=== PATIENT | female | born 1935 | race Caucasian/White ===

== ENCOUNTER → 2017-11-04 | Outpatient (REF) | payer MEDICARE, BC, MEDICAID ==
[~2017-11-04] MED LIST: ASPI1TAB PO; BUSP10TA PO; COUM2.5T17 PO; FLUT11IN INH; MELO15TA4 PO; OMEG100011 PO; OSCA200T PO; PROP1TAB29 PO; SIMV20TA2 PO; TRAM50TA2 PO; TRAZ50TA11 PO; ZANTTAB PO; [UNRECOGNIZED DRUG - CODE] PO
[2017-11-04 11:27] LABS: MEAN CORPUSCULAR HEMOGLOBIN 30.9 pg (27.0-33.0); MEAN CORPUSCULAR HGB CONC 30.9 g/dl (32.0-36.5); PLATELET COUNT, AUTOMATED 245 10^3/uL (150-450); RED CELL DISTRIBUTION WIDTH 13.1 % (11.5-14.5)
[2017-11-04 11:47] LABS: ALBUMIN 3.6 GM/DL (3.2-5.2); ALBUMIN/GLOBULIN RATIO 0.97 (1.00-1.93); BILIRUBIN,TOTAL 0.4 MG/DL (0.2-1.0); CALCIUM LEVEL 8.8 MG/DL (8.8-10.2); CREATININE FOR GFR 0.96 MG/DL (0.55-1.02); GLOMERULAR FILTRATION RATE 59.4 (>32); POTASSIUM SERUM 4.2 MEQ/L (3.5-5.1); TOTAL PROTEIN 7.3 GM/DL (6.4-8.2)
== END ==
LOC: M SFHCPLAZ 08:45
PROVIDERS: ATTEND Internal Medicine
DX: J45.909 Unspecified asthma, uncomplicated (principal); I10 Essential (primary) hypertension; E78.00 Pure hypercholesterolemia, unspecified

== ENCOUNTER → 2018-05-15 | Outpatient (REF) | payer MEDICARE, BC, MEDICAID ==
[2018-05-15 12:06] LABS: ALBUMIN 3.6 GM/DL (3.2-5.2); ALBUMIN/GLOBULIN RATIO 1.06 (1.00-1.93); ALKALINE PHOSPHATASE 75 U/L (45-117); ALT/SGPT 20 U/L (12-78); ANION GAP 6 MEQ/L (8-16); AST/SGOT 19 U/L (7-37); BILIRUBIN,TOTAL 0.6 MG/DL (0.2-1.0); BLOOD UREA NITROGEN 16 MG/DL (7-18); CALCIUM LEVEL 8.6 MG/DL (8.8-10.2); CARBON DIOXIDE LEVEL 30 MEQ/L (21-32); CHLORIDE LEVEL 109 MEQ/L (98-107); CREATININE FOR GFR 0.93 MG/DL (0.55-1.30); GLOMERULAR FILTRATION RATE > 60.0 (>32); GLUCOSE, FASTING 91 MG/DL (70-100); SODIUM LEVEL 145 MEQ/L (136-145)
[2018-05-15 13:17] LABS: ESTIMATED AVERAGE GLUCOSE 111 MG/DL (60-110); HEMOGLOBIN A1c 5.5 %
== END ==
LOC: M SFHCPLAZ 11:33
DX: I10 Essential (primary) hypertension (principal); R73.01 Impaired fasting glucose
CPT/HCPCS: 80053

== ENCOUNTER → 2018-11-28 | Outpatient (REF) | payer MEDICARE, BC, MEDICAID ==
[~2018-11-28] MED LIST changes: +MELO15TA28 PO; -MELO15TA4 PO; -PROP1TAB29 PO; +PROP20TA72 PO; +TRAZ-160 PO; -TRAZ50TA11 PO
[2018-11-28 11:32] LABS: HEMATOCRIT 42.2 % (36.0-47.0); HEMOGLOBIN 13.4 g/dl (12.0-15.5); MEAN CORPUSCULAR HEMOGLOBIN 30.9 pg (27.0-33.0); MEAN CORPUSCULAR HGB CONC 31.8 g/dl (32.0-36.5); MEAN CORPUSCULAR VOLUME 97.2 fl (80.0-96.0); PLATELET COUNT, AUTOMATED 245 10^3/uL (150-450); RED BLOOD COUNT 4.34 10^6/uL (4.00-5.40); WHITE BLOOD COUNT 6.4 10^3/uL (4.0-10.0)
[2018-11-28 12:13] LABS: ALBUMIN 3.9 GM/DL (3.2-5.2); ALT/SGPT 14 U/L (12-78); BILIRUBIN,TOTAL 0.6 MG/DL (0.2-1.0); BLOOD UREA NITROGEN 13 MG/DL (7-18); CALCIUM LEVEL 8.9 MG/DL (8.8-10.2); CARBON DIOXIDE LEVEL 28 MEQ/L (21-32); CHLORIDE LEVEL 105 MEQ/L (98-107); CHOLESTEROL LEVEL 200 MG/DL (<200); CHOLESTEROL RISK RATIO 2.941 (<5); CREATININE FOR GFR 0.83 MG/DL (0.55-1.30); GLOMERULAR FILTRATION RATE > 60.0 (>32); GLUCOSE, FASTING 89 MG/DL (70-100); HDL CHOLESTEROL 68 MG/DL (>40); LDL CHOLESTEROL 115 MG/DL (<100); NON-HDL-C 132 MG/DL; POTASSIUM SERUM 4.3 MEQ/L (3.5-5.1); SODIUM LEVEL 140 MEQ/L (136-145); THYROID STIMULATING HORMONE 0.782 uIU/ML (0.358-3.740); TOTAL PROTEIN 6.8 GM/DL (6.4-8.2); TRIGLYCERIDES LEVEL 84 MG/DL (<150)
[2018-11-28 14:13] LABS: TOTAL 25(OH) VITAMIN D 36.7 NG/ML (30.0-100.0)
== END ==
LOC: M SFHCPLAZ 07:09
PROVIDERS: ATTEND Internal Medicine
DX: J45.909 Unspecified asthma, uncomplicated (principal); I10 Essential (primary) hypertension; E78.00 Pure hypercholesterolemia, unspecified; F41.9 Anxiety disorder, unspecified; M81.0 Age-related osteoporosis without current pathological fracture

== ENCOUNTER → 2018-12-21 | Outpatient (CLI) | payer MEDICARE, BC, MEDICAID ==
[~2018-12-21] MED LIST changes: +APAP325T4 PO; +ASPI81TA85 PO; +MELA10CA PO; +VASC1CAP2 PO
[2018-12-21 14:23] LABS: HEMATOCRIT 42.7 % (36.0-47.0); HEMOGLOBIN 13.7 g/dl (12.0-15.5); MEAN CORPUSCULAR HEMOGLOBIN 31.4 pg (27.0-33.0); MEAN CORPUSCULAR HGB CONC 32.1 g/dl (32.0-36.5); MEAN CORPUSCULAR VOLUME 97.9 fl (80.0-96.0); PLATELET COUNT, AUTOMATED 310 10^3/uL (150-450); RED BLOOD COUNT 4.36 10^6/uL (4.00-5.40); WHITE BLOOD COUNT 5.5 10^3/uL (4.0-10.0)
[2018-12-21 14:34] LABS: INR 0.93; PROTHROMBIN TIME 12.6 SECONDS (12.1-14.4)
[2018-12-21 14:47] LABS: ALBUMIN 3.8 GM/DL (3.2-5.2); ALT/SGPT 12 U/L (12-78); BILIRUBIN,TOTAL 0.3 MG/DL (0.2-1.0); BLOOD UREA NITROGEN 12 MG/DL (7-18); CALCIUM LEVEL 8.9 MG/DL (8.8-10.2); CARBON DIOXIDE LEVEL 28 MEQ/L (21-32); CHLORIDE LEVEL 104 MEQ/L (98-107); CREATININE FOR GFR 0.94 MG/DL (0.55-1.30); GLOMERULAR FILTRATION RATE > 60.0 (>32); GLUCOSE, FASTING 138 MG/DL (70-100); SODIUM LEVEL 139 MEQ/L (136-145); TOTAL PROTEIN 6.9 GM/DL (6.4-8.2)
--- NOTE | 2018-12-21 14:52 | REP ---
Chest two views HISTORY: Preop Comparison: 06/01/2016 The lungs are clear. The heart is normal in size. The pulmonary vasculature is normal in appearance. The bony structure is intact. IMPRESSION: No acute disease. Electronically Signed by Kyaw Lara MD 12/21/2018 02:43 P
[2018-12-21 15:07] LABS: ERYTHROCYTE SEDIMENTATION RATE 7 mm/hr (0-30)
--- NOTE | 2018-12-22 08:40 | ECGEPIP ---
Stationary ECG Study [facility] Test Date: 2018-12-21 Pat Name: BRIDGETTE BENITO Department: Room: - Gender: F [employer] Milling Machine Tender: CHELITA : 1935 Requested By: Wolfgang Reynolds Order Number: [id number] Reading MD: Kaylin Ordonez Measurements Intervals Haigler Rate: 79 P: 57 MT: 164 QRS: 9 QRSD: 89 T: 57 QT: 372 QTc: 428 Interpretive Statements SINUS RHYTHM MINIMAL CHANGE SINCE 06/01/16 Electronically Signed On 12-22-2018 8:39:53 EST by Kaylin Ordonez
== END ==
LOC: M LAB 13:36
PROVIDERS: ATTEND Orthopaedic Surgery
DX: Z01.818 Encounter for other preprocedural examination (principal); M13.861 Other specified arthritis, right knee

== ENCOUNTER 2019-01-09 09:03 | Inpatient (IN) | payer MEDICARE, BC, MEDICAID ==
--- NOTE | 2018-12-27 15:11 | HPE ---
DATE OF ADMISSION: 01/09/2019 CHIEF COMPLAINT: Right knee pain. HISTORY OF PRESENT ILLNESS: Catherine is a pleasant 83-year-old female with progressively worsening right knee pain and stiffness. She has failed to improve with conservative treatment. She has elected for surgery for her continued symptoms. She has pain with weightbearing activities and her activities of daily living. X-rays of her knee are notable for advanced osteoarthritis of the right knee joint. She has consented for a right total knee arthroplasty by Dr. Rodolfo Aguirre. Medical optimization was performed by Dr. Bryan. ALLERGIES: No known allergies. CURRENT MEDICATIONS: - baby aspirin once a day - calcium with D - omega-3 with fish oil - daily multivitamin - buspirone 18 mg - propranolol 20 mg - meloxicam 15 mg - melatonin at night - calcium with D at night - omega-3 fish oil at night - Zocor 20 mg at night - Pepcid 20 mg at night - Flovent two puffs in the morning only - ProAir HFA micro inhaler two puffs every four hours as needed PAST MEDICAL HISTORY: 1. Hypertension. 2. Hyperlipidemia. 3. Insomnia. 4. Anxiety. PAST SURGICAL HISTORY: Includes a left total knee arthroplasty. SOCIAL HISTORY: Karly is retired and she does not smoke and only occasionally drinks alcohol. FAMILY HISTORY: Noncontributory. REVIEW OF SYSTEMS: This patient denies chest pain, heart palpitations, cough, wheezing, difficulty breathing and shortness of breath. She denies abdominal pain, nausea, vomiting, diarrhea or constipation. She denies recent upper respiratory infection or urinary tract infection symptoms. She does complain of persistent pain in the right knee and pain with weightbearing activities in the right knee. PHYSICAL EXAMINATION: VITAL SIGNS: She is 5 feet, 1/2 inches tall, weighs 127.2 pounds with a temperature of 97.5, blood pressure 150/90, respirations of 22, pulse of 64. GENERAL: She is well-nourished, well-developed, in no acute distress, alert female patient. She walks with a moderate limp favoring her right lower extremity. She uses a single-leg cane. NECK: Supple without adenopathy or jugular venous distension. LUNGS: Clear to auscultation without rales or wheeze throughout. HEART: Regular rate and rhythm. ABDOMEN: Bowel sounds were present. EXTREMITIES: Examination of the knee revealed intact skin. She had decreased range of motion secondary to pain and stiffness. The limb was neurovascularly intact. LABORATORY DATA: EKG showed sinus rhythm at 79 beats per minute. Chest x-ray showed no acute cardiopulmonary disease processes. Prothrombin time was 12.6, INR 0.93, glucose 138, BUN 12, creatinine 0.94, sodium 139, potassium 4.0. CBC showed an MCV of 97.9, otherwise within normal limits with a sedimentation rate of 7. IMPRESSION: Symptomatic osteoarthritis of the right knee. PLAN: Consented for a right total knee arthroplasty by Dr. Rodolfo Aguirre.
[2019-01-09] VITALS (7 sets, daily range): BP systolic 146–152; BP diastolic 86–94
[~2019-01-09] VITALS: Ht 162.6 cm; Wt 57.6 kg
[~2019-01-09 09:03] MED LIST changes: +ACETAMINOPHEN 500 MG TAB PO ONE; +LR 1,000 ML IV ONE
[2019-01-09] MEDS ORDERED: TRANEXAMIC ACID 100 MG/ML 10ML VIAL As Ordered ONE (10:47)
[2019-01-09] MEDS ORDERED: BUPIVACAINE HCL 0.25% 10 ML VIAL As Ordered ONE (10:48)
[2019-01-09] MEDS ORDERED: MIDAZOLAM INJ 2 MG/2 ML VIAL (J2250) As Ordered ONE ×2 (10:48→11:02)
[2019-01-09] MEDS ORDERED: EPINEPHrine INJ 1 MG/ML 1ML AMP As Ordered ONE (10:48)
[2019-01-09] MEDS ORDERED: BUPIVACAINE LIPOSOME/PF 1.3% 20ML VIAL (13.3MG/ML)(EXPAREL)(C9290 PER1MG) As Ordered ONE (10:48)
[2019-01-09] MEDS ORDERED: ceFAZolin 1GM INJ (J0690 PER 500MG) As Ordered ONE (10:48)
[2019-01-09] MEDS ORDERED: fentaNYL 100 MCG/2 ML INJECTION (J3010) As Ordered ONE ×2 (10:48→11:01)
[2019-01-09] MEDS ORDERED: MIDAZOLAM INJ 2 MG/2 ML VIAL (J2250) IV ONE (11:00)
[2019-01-09] MEDS ORDERED: PROPOFOL 200 MG/20 ML VIAL As Ordered ONE (11:01)
[2019-01-09] MEDS ORDERED: BUPIVACAINE HCL 0.5% 30 ML VIAL As Ordered ONE (11:08)
[2019-01-09] MEDS ORDERED: PHENYLephrine HCL 500 MCG/5 ML (100MCG/ML) SYRINGE (J2370) As Ordered ONE (12:50)
[2019-01-09] MEDS ORDERED: ACETAMINOPHEN TAB 650MG DOSE (2X325MG) PO PRN (14:30)
[2019-01-09] MEDS ORDERED: LR 1,000 ML IV SCH (14:30)
[2019-01-09] MEDS ORDERED: FLEET ENEMA PR PRN (14:30)
[2019-01-09] MEDS ORDERED: fentaNYL 100 MCG/2 ML INJECTION (J3010) IV PRN (14:30)
[2019-01-09] MEDS ORDERED: HYDROmorphone HCL 1 MG/ML SYRINGE (J1170) IV PRN ×2 (14:30)
[2019-01-09] MEDS ORDERED: ONDANSETRON 4MG/2ML VIAL (J2405) IV PRN (14:30)
--- NOTE | 2019-01-09 14:38 | REP ---
AP AND LATERAL RIGHT KNEE, TWO VIEWS: HISTORY: Postoperative. COMPARISON: 08/31/2016. The patient is status post right total knee replacement. There is no acute fracture or dislocation. Subcutaneous air and surgical sebastián are present in the overlying soft tissue. IMPRESSION: The patient is status post right total knee replacement. There is anatomic alignment. Electronically Signed by Kyaw Lara MD 01/09/2019 02:41 P
[2019-01-09] MEDS ORDERED: ROPIvacaine 0.5% 30 ML INJECTION (J2795 PER 1MG) ONE (14:41)
[2019-01-09] MEDS ORDERED: dexameTHASONE 10 MG/1 ML VIAL PRES.FREE (J1100) ONE (14:41)
--- NOTE | 2019-01-09 15:19 | RO ---
DATE OF PROCEDURE: 01/09/2019 PREOPERATIVE DIAGNOSIS: Right knee degenerative arthritis. POSTOPERATIVE DIAGNOSES: Right knee degenerative arthritis with right knee extensive hemarthrosis and hemosiderin-stained synovium with a marginal osteophyte fracture from the medial tibial condyle. PROCEDURE: Right total knee arthroplasty using a size 4 cruciate retaining femoral component and size 5 tibial tray with a 6 mm rotating platform polyethylene insert and a 35 mm polyethylene button. All the components were cemented. The prosthesis was made by [employer]. It was an Attune knee. SURGEON: Dr. Wolfgang Aguirre ADULT REMEDIAL EDUCATION INSTRUCTOR: Jaquelin Marie ANESTHESIA: Spinal with right femoral nerve block. COMPLICATIONS: None. ESTIMATED BLOOD LOSS: 20 mL. SPECIMENS: The joint surface. DESCRIPTION OF PROCEDURE: Antibiotics were given intravenously preoperatively, then a successful right femoral nerve block and then a spinal anesthetic was induced. A tourniquet placed right upper thigh and not inflated. Then, the right lower extremity was then carefully prepped and draped in the usual sterile fashion and then elevated, and after appropriate time-out, the tourniquet was inflated. A longitudinal incision was made for a medial parapatellar approach to the knee. Bovie cautery was used to coagulate crossing vessels. A medial parapatellar arthrotomy was performed revealing a hemarthrosis. It was noted that the synovium throughout the knee was hemosiderin stained. In addition, there was a marginal fracture of an osteophyte off the medial tibial condyle, likely causing the bleeding. Subperiosteal dissection around the proximal, medial, and lateral tibial plateaus performed. The fractured osteophyte was removed with a rongeur. The patella was everted, and it was noted to be severely evernated. The patella was everted and the knee flexed, and the drill placed down the center of the femoral canal. The distal femoral cutting jig was then applied and set with the jig set at a 5 degree valgus cut at 9 mm resection level for a right knee. The distal femoral cut performed. AP sizing jig measured for a size 4, and 3 degrees of external rotation was dialed in and the pins were placed and the 4-in-1 block applied. Anterior and posterior chamfer cuts performed. We then used the notch guide to perform a notchplasty on the femur, and then we exposed the proximal tibia, used the extramedullary alignment jig to estimate being parallel to the mechanical axis referencing off the medial tibial condyle at 4 mm resection level. Because of the fracture and somewhat of a divot in the medial side, I did end up taking an additional 4 mm, but once the jig was placed, secondary check with the extramedullary guide confirmed we appeared to the parallel to the mechanical axis. The proximal tibial osteotomy was then performed. Spacer blocks fit very symmetrically and with good stability to varus and valgus stress testing, ultimately with the 6 mm spacer. Laminar laminating machine tender was then placed medially, and we performed a completion of lateral meniscectomy debriding the posterolateral osteophytes. We then placed the laminary laminating machine tender laterally and performed a completion medial meniscectomy debriding the posterior medial osteophytes. At this point is when we actually did the spacer block testing, and then we sized the proximal tibia initially for a 4, but there was some rocking, and this is when we went back and took an additional 2 mm, then an additional total of 4 mm of the tibia to make the tibia flush, flat, and to make sure that we did not have excessive amount of deformity in the medial tibial condyle. When we were done, clearly, we had enough coverage of the defect where the medial marginal osteophyte fracture was located. We then sized for the #5 tray. It was pinned into position following the reamer and leslie. Trial was placed. Trial femoral component placed, and then we brought the knee into extension, everted the patella, performed a patellar ostotomy, sized for a 35 button. Lug holes were drilled, the trial placed, and patellofemoral tracking was anatomic. She had excellent range of motion, good stability with a size 6 spacer at this point. We then drilled the lug holes for the femur, removed all the trial components, placed Exparel in the subperiosteal tissues around the distal femur and the proximal tibia, and then Miss Jaquelin Marie mixed the cement on the back table as I prepared the bony surfaces for cementing with a copious amount of pulsatile lavage irrigant solution. Miss Jaquelin Marie was also critical to the success of this difficult operation by helping with appropriate soft tissue retraction, helped with closing the wound, helped to mix the cement, helped to prepare the patient otherwise, and help to provide appropriate soft tissue retraction and manipulation of the knee so I could perform the operation smoothly and efficiently. We then cemented the tibial tray, removed excess cement, placed the polyethylene, cemented the femoral component, removed excess cement, brought the knee into extension, and then cemented the patellar button and removed cement excess cement, held it with a clamp until the cement hardened with the knee in full extension. We copiously irrigated out the knee joint as we were awaiting for the cement to harden, and then placed tranexamic acid into the knee and then closed the apex of the arthrotomy with two #1 PDS sutures, the medial parapatellar area was closed with #1 PDS suture, then a double-arm #1 STRATAFIX running was used to close the capsule. Tourniquet was released. At this point we copiously irrigated again, closed the deep subdermal tissues with interrupted #2-0 PDS suture. Skin was closed with sebastián, covered by an Optifoam dry sterile bulky dressing. She was then transferred to the recovery room in stable condition. There were no intraoperative complications.
[2019-01-09] MEDS ORDERED: HYDROMORPHONE HCL 0.5 MG/ 0.5 ML SYRINGE (J1170 PER 1) IV PRN (15:33)
[2019-01-09] MEDS: LR 1,000 ML IV SCH (15:47)
[2019-01-09] MEDS: HYDROMORPHONE HCL 0.5 MG/ 0.5 ML SYRINGE (J1170 PER 1) IV PRN (21:13)
[2019-01-10 02:00] VITALS: BP 162/93
[2019-01-10] MEDS: LR 1,000 ML IV SCH (02:34)
[2019-01-10] MEDS: HYDROMORPHONE HCL 0.5 MG/ 0.5 ML SYRINGE (J1170 PER 1) IV PRN (03:52)
[2019-01-10 06:00] VITALS: BP 136/72
[2019-01-10] MEDS ORDERED: PERCOCET 5MG/325MG TAB PO PRN ×2 (06:30)
[2019-01-10] MEDS ORDERED: ONDANSETRON 4 MG TAB (S0181) PO PRN (06:30)
[2019-01-10 06:39] LABS: HEMATOCRIT 34.8 % (36.0-47.0); MEAN CORPUSCULAR HEMOGLOBIN 31.5 pg (27.0-33.0); MEAN CORPUSCULAR HGB CONC 31.6 g/dl (32.0-36.5); MEAN CORPUSCULAR VOLUME 99.7 fl (80.0-96.0); PLATELET COUNT, AUTOMATED 246 10^3/uL (150-450); RED BLOOD COUNT 3.49 10^6/uL (4.00-5.40); WHITE BLOOD COUNT 11.3 10^3/uL (4.0-10.0)
[2019-01-10 07:14] LABS: BLOOD UREA NITROGEN 14 MG/DL (7-18); CALCIUM LEVEL 8.2 MG/DL (8.8-10.2); CARBON DIOXIDE LEVEL 28 MEQ/L (21-32); CHLORIDE LEVEL 107 MEQ/L (98-107); CREATININE FOR GFR 0.73 MG/DL (0.55-1.30); GLOMERULAR FILTRATION RATE > 60.0 (>32); GLUCOSE, FASTING 106 MG/DL (70-100); POTASSIUM SERUM 3.9 MEQ/L (3.5-5.1); SODIUM LEVEL 140 MEQ/L (136-145)
[2019-01-10] MEDS ORDERED: FLUTICASONE HFA 110 MCG 12 GM INHALER (FLOVENT) INH PRN (07:15)
[2019-01-10] MEDS ORDERED: PERC5TAB12 PO (07:29)
[2019-01-10] MEDS ORDERED: XARE10TA PO (07:29)
[2019-01-10] MEDS ORDERED: busPIRone 10 MG TAB PO SCH (09:00)
[2019-01-10] MEDS ORDERED: MIRALAX *UNIT DOSE* 17GM PACKET PO SCH (09:00)
[2019-01-10] MEDS ORDERED: MOM 30ML SUSPENSION UDC PO SCH (09:00)
--- NOTE | 2019-01-10 16:25 | IPN ---
DATE: 01/10/2019 SUBJECTIVE: The patient tells me that she is feeling quite well. She has some pain in her knee but otherwise there are no specific complaints. OBJECTIVE VITAL SIGNS: Temperature 97.5, pulse 78, respiratory rate 16, blood pressure 136/72, oxygen saturation 96% on room air. GENERAL: She is a very pleasant, elderly, female sitting up in bed. She does not appear to be in any acute distress. HEENT: Cranial nerves II-XII are grossly intact. She has moist mucous membranes. No elevation in central venous pressure. CARDIOVASCULAR: S1, S2. RESPIRATORY EXAM: Clear. ABDOMINAL EXAM: Benign. EXTREMITIES: Her dressing is clean, dry and intact. LABORATORY STUDIES: WBC 11.3, hemoglobin 11.0, platelet count 246. Chemistry panel: Sodium 140, potassium 3.9, chloride 107, bicarbonate 28, BUN 14, creatinine 0.7. ASSESSMENT AND PLAN: This is an 83-year-old female postoperative day #1 for elective right total knee. 1. Right total knee. Management as per orthopedic surgery. 2. Anxiety. The patient is continued on her home buspirone. 3. Reactive airway disease. She is continued on Flovent. 4. Dyslipidemia. She is continued on Simvastatin. DISPOSITION: As per orthopedic surgery. Thank you for this interesting consultation. We will continue to follow along with you. Please call with any specific questions.
[2019-01-10] MEDS ORDERED: RIVAROXABAN 10 MG TAB (XARELTO) PO SCH (18:00)
[2019-01-10] MEDS ORDERED: SIMVASTATIN 10 MG TAB PO SCH (21:00)
--- NOTE | 2019-01-11 12:15 | DSES ---
DATE OF ADMISSION: 01/09/2019 DATE OF DISCHARGE: 01/10/2019 DISCHARGE DIAGNOSIS: Right knee arthritis status post right total knee arthroplasty. HISTORY: This an 83-year-old female with progressively worsening right knee pain and stiffness. She had failed to improve with conservative treatment. She elected for surgery for her continued symptoms. PROCEDURE PERFORMED: Right total knee arthroplasty. HOSPITAL COURSE: The patient was admitted on the day of surgery and underwent right total knee arthroplasty that was without complications. The patient's hospital course was without complications. Her pain was controlled and she was up with physical therapy per the protocol. Upon discharge, she was weightbearing as tolerated to her right lower extremity on her walker. She is going to resume her preoperative medications and diet. She is going to use oral medications for pain control. She will use Xarelto and KARLENE stockings for 30 days postoperatively for deep vein thrombosis (DVT) prophylaxis. Additionally, she will follow in the office in 2 weeks for wound check and staple removal.
== END 2019-01-10 11:00 | disposition other institution (70) | DRG 470 ==
LOC: M OR 09:03 → M MS5PR 15:25
PROVIDERS: ADMIT Orthopaedic Surgery; ATTEND Orthopaedic Surgery
PROC: 0SRC0J9 Replacement of Right Knee Joint with Synthetic Substitute, Cemented, Open Approach (ICD-10-PCS; principal; 2019-01-09 12:30)
DX: M17.11 Unilateral primary osteoarthritis, right knee (principal); I10 Essential (primary) hypertension; E78.5 Hyperlipidemia, unspecified; G47.00 Insomnia, unspecified; R26.89 Other abnormalities of gait and mobility; F41.9 Anxiety disorder, unspecified; Z96.652 Presence of left artificial knee joint; Z79.82 Long term (current) use of aspirin; Z79.899 Other long term (current) drug therapy

== ENCOUNTER → 2019-06-04 | Outpatient (REF) | payer MEDICARE, BC, MEDICAID ==
[~2019-06-04] MED LIST changes: -ACETAMINOPHEN 500 MG TAB PO ONE; -ASPI1TAB PO; +ASPI81TA26 PO; -LR 1,000 ML IV ONE; +PERC5TAB12 PO; -TRAZ-160 PO; +TRAZ-252 PO; +XARE10TA PO; +ZANT150T40 PO; -ZANTTAB PO
[2019-06-04 09:46] LABS: HEMATOCRIT 36.2 % (36.0-47.0); HEMOGLOBIN 11.1 g/dl (12.0-15.5); MEAN CORPUSCULAR HEMOGLOBIN 28.7 pg (27.0-33.0); MEAN CORPUSCULAR HGB CONC 30.7 g/dl (32.0-36.5); MEAN CORPUSCULAR VOLUME 93.5 fl (80.0-96.0); PLATELET COUNT, AUTOMATED 283 10^3/uL (150-450); RED BLOOD COUNT 3.87 10^6/uL (4.00-5.40); WHITE BLOOD COUNT 4.4 10^3/uL (4.0-10.0)
[2019-06-04 09:53] LABS: ALBUMIN 3.8 GM/DL (3.2-5.2); ALT/SGPT 15 U/L (12-78); BILIRUBIN,TOTAL 0.5 MG/DL (0.2-1.0); BLOOD UREA NITROGEN 11 MG/DL (7-18); CALCIUM LEVEL 8.9 MG/DL (8.8-10.2); CARBON DIOXIDE LEVEL 29 MEQ/L (21-32); CHLORIDE LEVEL 108 MEQ/L (98-107); CHOLESTEROL LEVEL 214 MG/DL (<200); CHOLESTEROL RISK RATIO 2.301 (<5); CREATININE FOR GFR 0.93 MG/DL (0.55-1.30); GLOMERULAR FILTRATION RATE > 60.0 (>32); GLUCOSE, FASTING 100 MG/DL (70-100); HDL CHOLESTEROL 93 MG/DL (>40); LDL CHOLESTEROL 106 MG/DL (<100); MAGNESIUM LEVEL 2.5 MG/DL (1.8-2.4); NON-HDL-C 121 MG/DL; POTASSIUM SERUM 4.4 MEQ/L (3.5-5.1); SODIUM LEVEL 141 MEQ/L (136-145); TOTAL PROTEIN 7.2 GM/DL (6.4-8.2); TRIGLYCERIDES LEVEL 75 MG/DL (<150)
== END ==
LOC: M SFHCPLAZ 07:54
PROVIDERS: ATTEND Internal Medicine
DX: J45.909 Unspecified asthma, uncomplicated (principal); I10 Essential (primary) hypertension; E78.00 Pure hypercholesterolemia, unspecified

== ENCOUNTER → 2020-06-26 | Outpatient (REF) | payer MEDICARE, BC, MEDICAID ==
[~2020-06-26] MED LIST changes: -ASPI81TA85 PO; +ASPI81TA86 PO; -SIMV20TA2 PO; +SIMV20TA22 PO
[2020-08-25 12:03] LABS: BASO % 0.6 % (0.0-1.0); EOS # 0.1 10^3/uL (0.0-0.5); EOS % 2.7 % (0.0-3.0); HEMATOCRIT 38.9 % (36.0-47.0); HEMOGLOBIN 11.8 g/dl (12.0-15.5); LYMPH # 1.9 10^3/uL (1.5-5.0); LYMPH % 36.4 % (24.0-44.0); MEAN CORPUSCULAR HGB CONC 30.3 g/dl (32.0-36.5); MEAN CORPUSCULAR VOLUME 92.4 fl (80.0-96.0); MONO # 0.5 10^3/uL (0.0-0.8); MONO % 8.8 % (0.0-5.0); NEUTROPHILS # 2.6 10^3/uL (1.5-8.5); NEUTROPHILS % 51.1 % (36.0-66.0); PLATELET COUNT, AUTOMATED 266 10^3/uL (150-450); RED BLOOD COUNT 4.21 10^6/uL (4.00-5.40); WHITE BLOOD COUNT 5.1 10^3/uL (4.0-10.0)
[2020-09-01 10:07] LABS: CREATININE FOR GFR 1.07 MG/DL (0.55-1.30); POTASSIUM SERUM 4.6 MEQ/L (3.5-5.1)
[2020-09-01 10:08] LABS: ALBUMIN 3.8 GM/DL (3.2-5.2); BILIRUBIN,TOTAL 0.3 MG/DL (0.2-1.0); CHOLESTEROL RISK RATIO 2.826 (<5); THYROID STIMULATING HORMONE 0.671 uIU/ML (0.358-3.740); TOTAL PROTEIN 7.3 GM/DL (6.4-8.2)
[2020-09-01 10:11] LABS: TOTAL 25(OH) VITAMIN D 28.1 NG/ML (30.0-100.0)
== END ==
LOC: M SFHCPLAZ 11:49
PROVIDERS: ATTEND Internal Medicine
DX: E78.00 Pure hypercholesterolemia, unspecified (principal); I10 Essential (primary) hypertension; F41.9 Anxiety disorder, unspecified; R73.01 Impaired fasting glucose; M81.0 Age-related osteoporosis without current pathological fracture

== ENCOUNTER → 2021-01-18 | Outpatient (REF) | payer MEDICARE, BC, MEDICAID ==
[2021-01-18 07:29] LABS: BLOOD UREA NITROGEN 21 MG/DL (7-18); CALCIUM LEVEL 8.8 MG/DL (8.8-10.2); CARBON DIOXIDE LEVEL 31 MEQ/L (21-32); CHLORIDE LEVEL 109 MEQ/L (98-107); CREATININE FOR GFR 1.07 MG/DL (0.55-1.30); GLUCOSE, FASTING 84 MG/DL (70-100); POTASSIUM SERUM 4.6 MEQ/L (3.5-5.1); SODIUM LEVEL 141 MEQ/L (136-145)
[2021-01-18 07:30] LABS: ALT/SGPT 14 U/L (12-78); BILIRUBIN,TOTAL 0.2 MG/DL (0.2-1.0); CHOLESTEROL LEVEL 228 MG/DL (<200); CHOLESTEROL RISK RATIO 2.561 (<5); HDL CHOLESTEROL 89 MG/DL (>40); LDL CHOLESTEROL 123 MG/DL (<100); MAGNESIUM LEVEL 2.4 MG/DL (1.8-2.4); NON-HDL-C 139 MG/DL; TOTAL PROTEIN 7.5 GM/DL (6.4-8.2); TRIGLYCERIDES LEVEL 82 MG/DL (<150)
[2021-01-18 10:07] LABS: HEMOGLOBIN A1c 5.5 %
[2021-01-19 09:53] LABS: TOTAL 25(OH) VITAMIN D 28.3 NG/ML (30.0-100.0); VITAMIN B12 LEVEL 322 PG/ML
[2021-01-19 09:54] LABS: FOLATE 12.7 NG/ML
== END ==
LOC: M LAB REF 07:01
PROVIDERS: ATTEND Internal Medicine
DX: R73.01 Impaired fasting glucose (principal); I10 Essential (primary) hypertension; E78.00 Pure hypercholesterolemia, unspecified; M81.0 Age-related osteoporosis without current pathological fracture; F41.9 Anxiety disorder, unspecified; Z11.59 Encounter for screening for other viral diseases
CPT/HCPCS: 80053; 80061; 82306; 82607; 82746; 83036; 83735; 84443; G0472

== ENCOUNTER 2021-06-11 03:45 | Emergency (ER) | payer MEDICARE, BC, MEDICAID ==
[~2021-06-11] VITALS: Ht 162.6 cm; Wt 74.3 kg
[2021-06-11] MEDS ORDERED: TRAZ-252 PO (04:06)
[2021-06-11] MEDS ORDERED: QUET1TAB17 PO (04:06)
[2021-06-11] MEDS ORDERED: BOOSTRIX/ADACEL VACCINE (DIPHTH/PERTUSS/ACELL/TETANUS) 0.5ML SYR IM ONE (06:25)
[2021-06-11 08:33] LABS: CALCIUM LEVEL 8.4 MG/DL (8.8-10.2); CREATININE FOR GFR 0.98 MG/DL (0.55-1.30); GLOMERULAR FILTRATION RATE 57.4 (>32); POTASSIUM SERUM 4.1 MEQ/L (3.5-5.1)
[2021-06-11 08:34] LABS: BASO % 0.4 % (0.0-1.0); EOS # 0.2 10^3/uL (0.0-0.5); EOS % 3.6 % (0.0-3.0); HEMATOCRIT 38.5 % (36.0-47.0); HEMOGLOBIN 11.8 g/dl (12.0-15.5); LYMPH # 1.9 10^3/uL (1.5-5.0); LYMPH % 41.6 % (24.0-44.0); MEAN CORPUSCULAR HEMOGLOBIN 28.7 pg (27.0-33.0); MEAN CORPUSCULAR HGB CONC 30.6 g/dl (32.0-36.5); MEAN CORPUSCULAR VOLUME 93.7 fl (80.0-96.0); MONO # 0.5 10^3/uL (0.0-0.8); MONO % 10.4 % (2.0-8.0); NEUTROPHILS % 43.6 % (36.0-66.0); PLATELET COUNT, AUTOMATED 270 10^3/uL (150-450); RED BLOOD COUNT 4.11 10^6/uL (4.00-5.40); WHITE BLOOD COUNT 4.5 10^3/uL (4.0-10.0)
[2021-06-11 08:40] LABS: RSV AMPLIFICATION NEGATIVE (NEGATIVE)
[2021-06-11 08:44] VITALS: BP 190/89
== END 2021-06-11 09:08 | disposition short-term general hospital (02) ==
LOC: M ED 03:45
DX: S00.81XA Abrasion of other part of head, initial encounter (principal); S02.91XA Unspecified fracture of skull, initial encounter for closed fracture; W18.39XA Other fall on same level, initial encounter; Y92.018 Other place in single-family (private) house as the place of occurrence of the external cause; I10 Essential (primary) hypertension; J45.909 Unspecified asthma, uncomplicated; F03.90 Unspecified dementia, unspecified severity, without behavioral disturbance, psychotic disturbance, mood disturbance, and anxiety; F33.9 Major depressive disorder, recurrent, unspecified; F41.9 Anxiety disorder, unspecified; E78.5 Hyperlipidemia, unspecified; G25.0 Essential tremor; Z79.899 Other long term (current) drug therapy

== ENCOUNTER 2021-06-15 15:58 | Inpatient (IN) | payer MEDICARE, MEDICAID ==
[~2021-06-15] VITALS: Ht 167.6 cm; Wt 71.9 kg
[~2021-06-15 15:58] MED LIST changes: +QUET1TAB17 PO
[2021-06-16 14:00] VITALS: BP 141/73
[2021-06-16] MEDS ORDERED: MAALOX 30 ML SUSP *UDC PO PRN (14:20)
[2021-06-16] MEDS ORDERED: MOM 30ML SUSPENSION UDC PO PRN (14:20)
--- NOTE | 2021-06-16 15:46 | HPEPDOC ---
[facility] Medical History & Physical Date of Admission Jun 16, 2021 Date of Service: Jun 16, 2021 Primary Care Physician: Jhonny Bryan Attending Physician: JURGEN ONEAL DO History and Physical CHIEF COMPLAINT: C7 transverse fracture HISTORY OF PRESENT ILLNESS: Patient is an 86-year-old female who is a direct transfer from [facility]. Patient initially presented to [facility] emergency department on June 11, 2021 after a ground-level fall. CT scan of the head and neck showed a C7 transverse fracture. Due to the need for possible surgical intervention, patient was transferred to [facility] for further evaluation. Patient was evaluated by neurosurgery who did not deem the patient a candidate for surgical intervention. Patient was then transferred [facility] to [facility] for further care with instructions to wear a cervical collar. Patient states that she has occasional pain in the back of her neck but is otherwise feeling well today. PAST MEDICAL HISTORY: 1. Essential hypertension. 2. Impaired fasting glucose. 3. Hypercholesterolemia. 4. Age-related osteoporosis 5. Essential tremor 6. Anxiety 7. Asthma PAST SURGICAL HISTORY: 1. Tonsillectomy as a child. 2. Bilateral cataract removals. 3. Bilateral knee replacements. SOCIAL HISTORY: Patient is a non-smoker and currently lives at the [facility] in [place], [place]. Patient does not smoke cigarettes, used to drink heavily but no longer does. Patient does not use IV drugs. FAMILY HISTORY: In review of the patient's medical record it appears that the patient's father of heart disease at age 60, mother of natural causes 82. Patient has a sister of lung cancer at 62 and another sister at 79 after a fall ALLERGIES: Please see below. REVIEW OF SYSTEMS: General: Patient denies fevers HEENT: Patient reports mild headaches where she has a bruise Cardiovascular: Patient denies chest pain Respiratory: Patient denies shortness of breath, cough GI: Patient denies abdominal pain, nausea, vomiting, diarrhea : Patient denies increased frequency or pain with urination Extremities: Patient denies swelling or pain in extremities Neurological: Patient denies numbness or tingling in legs Skin: Patient denies any new rashes or lesions. Hematologic: Patient denies any easy bruising. Lymphatic: Patient denies any lumps lumps or bumps in neck, axilla, or groin HOME MEDICATIONS: Please see below. PHYSICAL EXAMINATION: VITAL SIGNS: Temperature 97, pulse 64, respiratory rate 16, blood pressure 141/73, pulse oximetry 96% on room air. General: Alert and oriented female patient with cervical collar in place who was sitting up in bed when I walked in the room. Patient did not appear to be in any acute distress. HEENT: Normocephalic, patient had a bruise with a scab over is over her left forehead with some bruising around the left eye with no conjunctival injection, moist mucous membrane Neck: No lymphadenopathy or thyromegaly Cardiac: Regular rate and rhythm, no murmurs, normal S1, normal S2 Pulm: Clear to auscultation bilaterally. No wheezes, rhonchi, rales Abd: Nondistended, nontender to palpation, normal bowel sounds Ext: No edema bilateral lower extremities Neuro: Patient was able to move all 4 extremities on command. Patient reported equal sensation to light touch. LABORATORY DATA: See below. IMAGING: MICROBIOLOGY: Please see below. ASSESSMENT: Patient is AN 86-year-old female who presents to the floor directly from [facility] after care for C7 cervical fracture. . PLAN: 1. C7 transverse cervical fracture. Patient had a fall from ground-level on 06/11/[address] scan showed fracture. Patient was initially transferred to [facility] for possible surgical intervention but this was not necessary. Patient was transferred back. ARU screen has been placed. Pain control with Tylenol. Physical and occupational therapy has been ordered. 2. Falls. PT and OT have been ordered. ARU screen has been placed. 3. Hypertension. We will continue to monitor the patient's blood pressures. 4. Delirium on top of dementia. Patient was having issues with delirium at [facility]. Zyprexa was given at [facility] which did help the patient. Patient appeared to have her days and nights mixed up according to the documentation that I was reading. Pain control can be given with 2.5 mg of oxycodone if necessary as this was what was recommended by the geriatric consultation at [facility]. 5. Hyperlipidemia. Continue patient's home medications. 6. Anxiety. Continue patient's home medications. 7. Osteoporosis. Continue patient's home medications. 8. DVT prophylaxis Heparin 9. CODE STATUS: Full code Disposition: Patient be admitted to the medical surgical floor for further management of her cervical fracture as well as for acute rehabilitation screen. Patient will either go to ARU or be discharged back to the [facility] in [place]. Vital Signs Vital Signs Date Time Temp Pulse Resp B/P (MAP) Pulse Ox O2 Delivery O2 Flow Rate FiO2 06/16/21 14:00 97.0 64 16 141/73 (95) 96 Room Air Home Medications Scheduled Buspirone HCl (Buspirone HCl) 10 Mg Tab, 10 MG PO BID Calcium/Vitamin D (Oscal 500/200 D-3 500-200 mg-Unit) 1 Tab Tab, 1 TAB PO DAILY Icosapent Ethyl (Vascepa) 1 Gm Cap, 1 GM PO BID Quetiapine Fumarate (Quetiapine Fumarate) 25 Mg Tablet, 25 MG PO BID Simvastatin (Simvastatin) 20 Mg Tab, 10 MG PO DAILY Trazodone HCl (Trazodone HCl) 50 Mg Tablet, 50 MG PO QPM Scheduled PRN Acetaminophen (Acetaminophen) 325 Mg Tab, 650 MG PO Q4-6HP PRN for PAIN Fluticasone Propionate (Flovent Hfa) 110 Mcg/Act Aer, 2 MCG INH DAILYPRN PRN for SHORTNESS OF BREATH Melatonin (Melatonin) 10 Mg Cap, 10 MG PO QPMP PRN for SLEEP Allergies Coded Allergies: No Known Allergies (Unverified , 12/27/18) A-FIB/CHADSVASC A-FIB History Current/History of A-Fib/PAF?: No JURGEN ONEAL DO Jun 16, 2021 15:46
[2021-06-16 16:28] LABS: HEMOGLOBIN 12.2 g/dl (12.0-15.5); MEAN CORPUSCULAR HEMOGLOBIN 28.6 pg (27.0-33.0); MEAN CORPUSCULAR HGB CONC 30.5 g/dl (32.0-36.5); MEAN CORPUSCULAR VOLUME 93.9 fl (80.0-96.0); PLATELET COUNT, AUTOMATED 251 10^3/uL (150-450); RED BLOOD COUNT 4.26 10^6/uL (4.00-5.40); WHITE BLOOD COUNT 5.2 10^3/uL (4.0-10.0)
[2021-06-16 16:39] LABS: CALCIUM LEVEL 8.8 MG/DL (8.8-10.2); CREATININE FOR GFR 1.01 MG/DL (0.55-1.30); GLOMERULAR FILTRATION RATE 55.5 (>32); MAGNESIUM LEVEL 2.4 MG/DL (1.8-2.4); POTASSIUM SERUM 4.9 MEQ/L (3.5-5.1)
[2021-06-16] MEDS ORDERED: PROT1TAB2 PO (17:20)
[2021-06-16] MEDS ORDERED: PERCTAB2 PO (17:20)
[2021-06-16] MEDS ORDERED: QUET1TAB17 PO (17:20)
[2021-06-16] MEDS ORDERED: ZYPR2.5T2 PO (17:20)
[2021-06-16] MEDS ORDERED: LOVE1INJ SC (17:20)
[2021-06-16] MEDS ORDERED: SIMV10TA21 PO (17:20)
[2021-06-16] MEDS ORDERED: CALC1TAB19 PO (17:20)
[2021-06-16] MEDS ORDERED: MELA3TAB10 PO (17:20)
[2021-06-16] MEDS ORDERED: D31000TA2 PO (17:20)
[2021-06-16] MEDS ORDERED: QC A650T3 PO (17:20)
[2021-06-16] MEDS ORDERED: ASPI-161 PO (17:20)
[2021-06-16] MEDS ORDERED: HOME MED LIST COMPLETE! XX SCH (17:25)
[2021-06-16] MEDS ORDERED: OLANZapine INTRAMUSCULAR 10MG VIAL IM ONE (20:55)
[2021-06-17] MEDS: ACETAMINOPHEN TAB 650MG DOSE (2X325MG) PO PRN (00:52)
[2021-06-17 01:45] VITALS: BP 115/71
[2021-06-17 06:30] VITALS: BP 124/86
[2021-06-17 06:51] LABS: HEMOGLOBIN 12.8 g/dl (12.0-15.5); MEAN CORPUSCULAR HEMOGLOBIN 28.1 pg (27.0-33.0); MEAN CORPUSCULAR HGB CONC 30.5 g/dl (32.0-36.5); MEAN CORPUSCULAR VOLUME 92.1 fl (80.0-96.0); PLATELET COUNT, AUTOMATED 301 10^3/uL (150-450); RED BLOOD COUNT 4.56 10^6/uL (4.00-5.40); WHITE BLOOD COUNT 6.2 10^3/uL (4.0-10.0)
[2021-06-17 07:22] LABS: CALCIUM LEVEL 9.4 MG/DL (8.8-10.2); CREATININE FOR GFR 1.1 MG/DL (0.55-1.30); GLOMERULAR FILTRATION RATE 50.3 (>32); MAGNESIUM LEVEL 2.3 MG/DL (1.8-2.4); POTASSIUM SERUM 4.4 MEQ/L (3.5-5.1)
[2021-06-17] MEDS: ENOXAPARIN 30MG/0.3ML SYRINGE (J1650 PER 10MG) SC SCH (08:35)
[2021-06-17] MEDS ORDERED: OLANZapine INTRAMUSCULAR 10MG VIAL IM PRN (09:15)
[2021-06-17] MEDS: busPIRone 10 MG TAB PO SCH ×2 (10:37→20:57)
[2021-06-17] MEDS: PANTOPRAZOLE 40MG TAB (PROTONIX) PO SCH (10:37)
[2021-06-17] MEDS: ASPIRIN 81MG ENTERIC TABLET PO SCH (10:37)
[2021-06-17] MEDS: QUEtiapine FUMARATE 25 MG TAB PO SCH (10:38)
[2021-06-17] MEDS: VITAMIN D 1,000 INTERNATIONAL UNITS TABLET PO SCH (10:38)
[2021-06-17] MEDS: FLUTICASONE HFA 110 MCG 12 GM INHALER (FLOVENT) INH SCH ×2 (11:41→20:00)
[2021-06-17] MEDS ORDERED: HALOPERIDOL 5MG/ML VIAL (J1630 PER 1) IM STA ×2 (13:41→14:41)
[2021-06-17 14:00] VITALS: BP 119/85
--- NOTE | 2021-06-17 14:29 | IPNPDOC ---
Text Note Date of Service The patient was seen on 06/17/21. NOTE Subjective: Patient is an 86-year-old female with past history of hypertension, hypercholesterolemia, and dementia who was transferred yesterday from [facility]. Patient initially had a C7 transverse fracture and was transferred due to possible need for surgical intervention. No surgery was performed the patient was transferred back to [facility]. Patient has been agitated with increased delirium on top of her underlying dementia throughout the day today. Patient has been trying to leave and has been violent with staff. This has been so bad to the point where the patient has been medicated with haloperidol in order to protect the staff. Patient is otherwise doing well and medically does not have any acute issues at this time. Review of systems: General: Patient denies fevers HEENT: Patient denies headaches Cardiovascular: Patient denies chest pain Respiratory: Patient denies shortness of breath, cough GI: Patient denies abdominal pain, nausea, vomiting, diarrhea : Patient denies increased frequency or pain with urination Extremities: Patient denies swelling or pain in extremities Neurological: Patient denies numbness or tingling in legs Physical exam: Vitals: See below General: Alert but not oriented female who was sitting in the bedside chair when I walked into the room. Patient had cervical collar in place and did not appear to be in any acute distress. HEENT: Normocephalic, atraumatic, moist mucous membranes. Neck: No lymphadenopathy or thyromegaly Cardiac: Regular rate and rhythm, no murmurs, normal S1, normal S2 Pulm: Clear to auscultation bilaterally. No wheezes, rhonchi, rales Abd: Nondistended, nontender to palpation, normal bowel sounds Ext: No edema bilateral lower extremities Labs: See below Imaging: No new imaging has been performed Assessment/plan: 86-year-old female who presented to the floor directly from [facility] after care for a C7 cervical fracture 1. C7 transverse cervical fracture. Patient will does not qualify for ARU. Patient will work with physical and Occupational Therapy. We will continue to monitor. Patient pain has been controlled. 2. Falls. PT and OT have been ordered. 3. Hypertension. Continue outpatient blood pressure. 4. Delirium on underlying dementia. Patient was having issues with delirium at [facility]. Patient was seen by the geriatric service who recommended Zyprexa. Patient was very agitated earlier today requiring 2 mg of IM Haldol to be given to the patient in order to calm her down and protect the staff as she was attempting to headbutt, bite, and pull staff members hair. We will continue to monitor the patient. Patient was restarted on her Seroquel. 5. Hyperlipidemia. Continue patient's on medications. 6. Anxiety. Continue patient's home medications. 7. Osteoporosis continue patient's medications. DVT Prophylaxis: Heparin Disposition: Pending placement in locked dementia unit. VS,Nate, I+O VS, Joaobone, I+O Laboratory Tests 06/16/21 16:08 06/17/21 06:12 Vital Signs Date Time Temp Pulse Resp B/P (MAP) Pulse Ox O2 Delivery O2 Flow Rate FiO2 06/17/21 11:42 16 16 06/17/21 01:45 98.2 115/71 (86) 96 Room Air I&O- Last 24 Hours up to 6 AM 06/17/21 06:00 Intake Total 420 ml Output Total 0 ml Balance 420 ml JURGEN OENAL DO Jun 17, 2021 14:29
[2021-06-17] MEDS ORDERED: OLANZapine INTRAMUSCULAR 10MG VIAL IM ONE ×2 (18:50→19:00)
[2021-06-17] MEDS: SIMVASTATIN 10 MG TAB PO SCH (20:57)
[2021-06-17] MEDS: traZODone 50 MG TAB PO SCH (20:57)
[2021-06-17] MEDS: QUEtiapine FUMARATE 50MG TAB PO SCH (20:57)
[2021-06-17] MEDS ORDERED: QUEtiapine FUMARATE 25 MG TAB PO SCH (21:00)
[2021-06-18] MEDS: FLUTICASONE HFA 110 MCG 12 GM INHALER (FLOVENT) INH SCH ×2 (07:32→19:58)
[2021-06-18] MEDS: VITAMIN D 1,000 INTERNATIONAL UNITS TABLET PO SCH (08:18)
[2021-06-18] MEDS: ASPIRIN 81MG ENTERIC TABLET PO SCH (08:19)
[2021-06-18] MEDS: busPIRone 10 MG TAB PO SCH ×2 (08:19→22:07)
[2021-06-18] MEDS: QUEtiapine FUMARATE 25 MG TAB PO SCH (08:19)
[2021-06-18] MEDS: ENOXAPARIN 30MG/0.3ML SYRINGE (J1650 PER 10MG) SC SCH (08:19)
[2021-06-18] MEDS: PANTOPRAZOLE 40MG TAB (PROTONIX) PO SCH (08:19)
[2021-06-18] MEDS: OLANZapine 2.5MG TABLET PO PRN (08:21)
[2021-06-18] MEDS: ACETAMINOPHEN TAB 650MG DOSE (2X325MG) PO PRN (08:30)
[2021-06-18 10:40] LABS: CALCIUM LEVEL 8.8 MG/DL (8.8-10.2); CREATININE FOR GFR 1.07 MG/DL (0.55-1.30); GLOMERULAR FILTRATION RATE 51.9 (>32); MAGNESIUM LEVEL 2.3 MG/DL (1.8-2.4); POTASSIUM SERUM 4.2 MEQ/L (3.5-5.1)
[2021-06-18 11:18] LABS: HEMATOCRIT 37.3 % (36.0-47.0); HEMOGLOBIN 11.5 g/dl (12.0-15.5); MEAN CORPUSCULAR HEMOGLOBIN 28.8 pg (27.0-33.0); MEAN CORPUSCULAR VOLUME 93.3 fl (80.0-96.0); PLATELET COUNT, AUTOMATED 222 10^3/uL (150-450); WHITE BLOOD COUNT 5.6 10^3/uL (4.0-10.0)
[2021-06-18 11:19] LABS: MEAN CORPUSCULAR HGB CONC 30.8 g/dl (32.0-36.5)
[2021-06-18 13:55] VITALS: BP 134/74
--- NOTE | 2021-06-18 15:14 | IPNPDOC ---
Text Note Date of Service The patient was seen on 06/18/21. NOTE Subjective: Patient is an 86-year-old female past history of hypertension, hyp ercholesterolemia, and dementia was transferred to [facility] from [facility] 2 days ago. Had C7 transverse fracture. Patient was having difficult to control behaviors yesterday but is doing better today. As needed medications have been added. Patient is otherwise doing well. Physical exam: Vitals: See below General: Alert but not oriented female who was sleeping when I walked in the room. Patient had cervical collar in place and did not appear to be in any acute distress. HEENT: Normocephalic, atraumatic, moist mucous membranes. Neck: No lymphadenopathy or thyromegaly Cardiac: Regular rate and rhythm, no murmurs, normal S1, normal S2 Pulm: Clear to auscultation bilaterally. No wheezes, rhonchi, rales Abd: Nondistended, nontender to palpation, normal bowel sounds Ext: No edema bilateral lower extremities Labs: See below Imaging: No new imaging has been performed Assessment/plan: 86-year-old female presented to the floor directly from [facility] after care for C7 cervical fracture 1. C7 transverse cervical fracture. Patient does not qualify for ARU. Patient has not been working well with physical and occupational therapy due to her behaviors. Patient is able to walk around the unit without any difficulty however, she is a flight risk. Patient will need locked unit. 2. Falls. PT and OT have been ordered. 3. Hypertension. Continue outpatient blood pressure medication. 4. Delirium on underlying dementia. Patient was having issues with delirium at [facility] as well as at home prior to her fall. Patient has been restarted on her home medications with as needed Zyprexa. Patient will need a locked unit for placement. 5. Hyperlipidemia. Continue patient's medications. 6. Anxiety. Continue patient's on medications. 7. Osteoporosis. Continue patient's home medications. DVT Prophylaxis: Lovenox although the patient has been refusing this Disposition: Pending placement in a locked dementia unit. Patient will be made ALC status today. VS,Fishbone, I+O VS, Fishbone, I+O Laboratory Tests 06/18/21 09:56 Vital Signs Date Time Temp Pulse Resp B/P (MAP) Pulse Ox O2 Delivery O2 Flow Rate FiO2 06/18/21 13:55 97.5 80 18 134/74 (94) Room Air 06/17/21 06:30 93 I&O- Last 24 Hours up to 6 AM 06/18/21 05:59 Intake Total 1550 ml Balance 1550 ml JURGEN ONEAL DO Jun 18, 2021 15:14
[2021-06-18 22:00] VITALS: BP 141/75
[2021-06-18] MEDS: SIMVASTATIN 10 MG TAB PO SCH (22:07)
[2021-06-18] MEDS: QUEtiapine FUMARATE 50MG TAB PO SCH (22:07)
[2021-06-18] MEDS: traZODone 50 MG TAB PO SCH (22:07)
[2021-06-19 05:47] LABS: HEMATOCRIT 37.2 % (36.0-47.0); HEMOGLOBIN 11.5 g/dl (12.0-15.5); MEAN CORPUSCULAR HEMOGLOBIN 28.9 pg (27.0-33.0); MEAN CORPUSCULAR HGB CONC 30.9 g/dl (32.0-36.5); MEAN CORPUSCULAR VOLUME 93.5 fl (80.0-96.0); PLATELET COUNT, AUTOMATED 221 10^3/uL (150-450); RED BLOOD COUNT 3.98 10^6/uL (4.00-5.40); WHITE BLOOD COUNT 4.8 10^3/uL (4.0-10.0)
[2021-06-19 06:00] VITALS: BP 140/77
[2021-06-19 06:04] LABS: BLOOD UREA NITROGEN 28 MG/DL (7-18); CALCIUM LEVEL 8.1 MG/DL (8.8-10.2); CARBON DIOXIDE LEVEL 27 MEQ/L (21-32); CHLORIDE LEVEL 111 MEQ/L (98-107); CREATININE FOR GFR 0.94 MG/DL (0.55-1.30); GLOMERULAR FILTRATION RATE > 60.0 (>32); GLUCOSE, FASTING 91 MG/DL (70-100); MAGNESIUM LEVEL 2.4 MG/DL (1.8-2.4); POTASSIUM SERUM 4.3 MEQ/L (3.5-5.1); SODIUM LEVEL 143 MEQ/L (136-145)
[2021-06-19] MEDS: FLUTICASONE HFA 110 MCG 12 GM INHALER (FLOVENT) INH SCH ×2 (07:26→20:13)
[2021-06-19] MEDS: busPIRone 10 MG TAB PO SCH ×2 (08:46→20:16)
[2021-06-19] MEDS: QUEtiapine FUMARATE 25 MG TAB PO SCH (08:46)
[2021-06-19] MEDS: ASPIRIN 81MG ENTERIC TABLET PO SCH (08:46)
[2021-06-19] MEDS: PANTOPRAZOLE 40MG TAB (PROTONIX) PO SCH (08:46)
[2021-06-19] MEDS: VITAMIN D 1,000 INTERNATIONAL UNITS TABLET PO SCH (08:46)
[2021-06-19] MEDS: OLANZapine 2.5MG TABLET PO PRN (08:46)
[2021-06-19] MEDS: ENOXAPARIN 30MG/0.3ML SYRINGE (J1650 PER 10MG) SC SCH (08:49)
[2021-06-19] MEDS: DOCUSATE SODIUM 100MG CAPSULE PO SCH ×2 (10:00→20:16)
[2021-06-19 14:00] VITALS: BP 154/95
[2021-06-19 15:54] LABS: RSV AMPLIFICATION NEGATIVE (NEGATIVE)
[2021-06-19] MEDS: SIMVASTATIN 10 MG TAB PO SCH (20:16)
[2021-06-19] MEDS: traZODone 50 MG TAB PO SCH (20:16)
[2021-06-19] MEDS: QUEtiapine FUMARATE 50MG TAB PO SCH (20:16)
[2021-06-19] MEDS: ACETAMINOPHEN TAB 650MG DOSE (2X325MG) PO PRN (20:17)
[2021-06-19] MEDS: RAMELTEON 8 MG TAB (ROZEREM) PO PRN (23:20)
[2021-06-20] MEDS: ACETAMINOPHEN TAB 650MG DOSE (2X325MG) PO PRN ×2 (01:58→14:11)
[2021-06-20] MEDS: OLANZapine 2.5MG TABLET PO PRN ×2 (01:58→14:11)
[2021-06-20 08:00] VITALS: BP 154/95
[2021-06-20] MEDS: FLUTICASONE HFA 110 MCG 12 GM INHALER (FLOVENT) INH SCH ×2 (08:08→20:09)
[2021-06-20 08:19] LABS: HEMATOCRIT 40.5 % (36.0-47.0); HEMOGLOBIN 12.2 g/dl (12.0-15.5); MEAN CORPUSCULAR HEMOGLOBIN 28.8 pg (27.0-33.0); MEAN CORPUSCULAR HGB CONC 30.1 g/dl (32.0-36.5); MEAN CORPUSCULAR VOLUME 95.5 fl (80.0-96.0); PLATELET COUNT, AUTOMATED 250 10^3/uL (150-450); RED BLOOD COUNT 4.24 10^6/uL (4.00-5.40); WHITE BLOOD COUNT 6.1 10^3/uL (4.0-10.0)
[2021-06-20] MEDS: PANTOPRAZOLE 40MG TAB (PROTONIX) PO SCH (08:34)
[2021-06-20] MEDS: QUEtiapine FUMARATE 25 MG TAB PO SCH (08:34)
[2021-06-20] MEDS: busPIRone 10 MG TAB PO SCH ×2 (08:34→20:43)
[2021-06-20] MEDS: VITAMIN D 1,000 INTERNATIONAL UNITS TABLET PO SCH (08:34)
[2021-06-20] MEDS: ASPIRIN 81MG ENTERIC TABLET PO SCH (08:34)
[2021-06-20] MEDS: ENOXAPARIN 30MG/0.3ML SYRINGE (J1650 PER 10MG) SC SCH (08:34)
[2021-06-20] MEDS: DOCUSATE SODIUM 100MG CAPSULE PO SCH ×2 (08:34→20:43)
[2021-06-20 08:44] LABS: CALCIUM LEVEL 8.9 MG/DL (8.8-10.2); CREATININE FOR GFR 1.18 MG/DL (0.55-1.30); GLOMERULAR FILTRATION RATE 46.3 (>32); MAGNESIUM LEVEL 2.4 MG/DL (1.8-2.4); POTASSIUM SERUM 4.4 MEQ/L (3.5-5.1)
[2021-06-20] MEDS: RAMELTEON 8 MG TAB (ROZEREM) PO PRN (20:42)
[2021-06-20] MEDS: traZODone 50 MG TAB PO SCH (20:43)
[2021-06-20] MEDS: SIMVASTATIN 10 MG TAB PO SCH (20:43)
[2021-06-20] MEDS: QUEtiapine FUMARATE 50MG TAB PO SCH (20:43)
[2021-06-21] MEDS: OLANZapine 2.5MG TABLET PO PRN ×2 (01:57→08:44)
[2021-06-21] MEDS: ACETAMINOPHEN TAB 650MG DOSE (2X325MG) PO PRN (03:01)
[2021-06-21 06:00] VITALS: BP 134/79
[2021-06-21 06:53] LABS: HEMATOCRIT 38.2 % (36.0-47.0); HEMOGLOBIN 11.6 g/dl (12.0-15.5); MEAN CORPUSCULAR HEMOGLOBIN 28.8 pg (27.0-33.0); MEAN CORPUSCULAR HGB CONC 30.4 g/dl (32.0-36.5); MEAN CORPUSCULAR VOLUME 94.8 fl (80.0-96.0); PLATELET COUNT, AUTOMATED 248 10^3/uL (150-450); RED BLOOD COUNT 4.03 10^6/uL (4.00-5.40); WHITE BLOOD COUNT 6.3 10^3/uL (4.0-10.0)
[2021-06-21 07:09] LABS: CALCIUM LEVEL 8.9 MG/DL (8.8-10.2); CREATININE FOR GFR 1.11 MG/DL (0.55-1.30); GLOMERULAR FILTRATION RATE 49.7 (>32); MAGNESIUM LEVEL 2.4 MG/DL (1.8-2.4); POTASSIUM SERUM 4.4 MEQ/L (3.5-5.1)
[2021-06-21] MEDS: FLUTICASONE HFA 110 MCG 12 GM INHALER (FLOVENT) INH SCH ×2 (07:27→19:59)
[2021-06-21] MEDS: QUEtiapine FUMARATE 25 MG TAB PO SCH (08:43)
[2021-06-21] MEDS: busPIRone 10 MG TAB PO SCH ×2 (08:43→20:37)
[2021-06-21] MEDS: PANTOPRAZOLE 40MG TAB (PROTONIX) PO SCH (08:44)
[2021-06-21] MEDS: DOCUSATE SODIUM 100MG CAPSULE PO SCH ×2 (08:44→20:37)
[2021-06-21] MEDS: ASPIRIN 81MG ENTERIC TABLET PO SCH (08:44)
[2021-06-21] MEDS: VITAMIN D 1,000 INTERNATIONAL UNITS TABLET PO SCH (08:44)
[2021-06-21] MEDS: ENOXAPARIN 30MG/0.3ML SYRINGE (J1650 PER 10MG) SC SCH (08:53)
[2021-06-21] MEDS: QUEtiapine FUMARATE 50MG TAB PO SCH (20:37)
[2021-06-21] MEDS: traZODone 50 MG TAB PO SCH (20:37)
[2021-06-21] MEDS: SIMVASTATIN 10 MG TAB PO SCH (20:37)
[2021-06-22 06:00] VITALS: BP 152/70
[2021-06-22] MEDS: OLANZapine 2.5MG TABLET PO PRN (06:58)
[2021-06-22 07:12] LABS: HEMATOCRIT 38.8 % (36.0-47.0); HEMOGLOBIN 11.7 g/dl (12.0-15.5); MEAN CORPUSCULAR HEMOGLOBIN 28.3 pg (27.0-33.0); MEAN CORPUSCULAR HGB CONC 30.2 g/dl (32.0-36.5); MEAN CORPUSCULAR VOLUME 93.7 fl (80.0-96.0); PLATELET COUNT, AUTOMATED 246 10^3/uL (150-450); RED BLOOD COUNT 4.14 10^6/uL (4.00-5.40); WHITE BLOOD COUNT 5.7 10^3/uL (4.0-10.0)
--- NOTE | 2021-06-22 07:25 | DS.PDOC ---
Discharge Summary General Date of Admission Jun 16, 2021 at 13:10 Date of Discharge 06/22/2021 Primary Care Physician: Jhonny Bryan Attending Physician: JURGEN ONEAL DO Discharge Summary PROCEDURES PERFORMED DURING STAY: None. ADMITTING DIAGNOSES: 1. C7 transverse cervical fracture. 2. Falls 3. Hypertension 4. Delirium on top of dementia 5. Hyperlipidemia 6. Anxiety 7. Osteoporosis DISCHARGE DIAGNOSES: 1. C7 transverse cervical fracture. 2. Falls 3. Hypertension Delirium on top of dementia, improved 5. Hyperlipidemia 6. Anxiety 7. Osteoporosis COMPLICATIONS/CHIEF COMPLAINT: Fall,Dementia. HISTORY OF PRESENT ILLNESS: Patient is a 86-year-old female who was a direct transfer from [facility]. Patient presented to [facility] on 06/16/2021. Patient initially presented to [facility] emergency department on June 11, 2021 after a ground-level fall. CT scan of the head and neck showed a C7 transverse fracture. Due to the need for possible surgical intervention, patient was transferred to [facility] for further evaluation. Patient was evaluated by neurosurgery who did not deem the patient a candidate for surgical intervention. Patient was transferred back to [facility] for further care. Patient was instructed to wear a cervical collar which he has been wearing. Patient states that she has occasional pain in her back and her neck but is otherwise feeling well.. HOSPITAL COURSE: Patient did well and did not require extensive physical therapy as the patient was able to walk around the unit. Patient did have some delirium and confusion causing the patient to be very agitated early on her admission. Patient was restarted on her medications. Patient did require IM Haldol in order to protect staff however, patient did not threaten or harm any staff after 06/17/2021. Patient was pleasant throughout the rest of her hospitalization. Patient stayed in the hospital awaiting transportation to a dementia unit in [place], [place]. On 06/22/2021, a bed was available and transportation was set up. Patient was deemed ready for discharge on 06/22/2021. Patient was medically cleared for discharge on 06/19/2021. Patient was discharged in the hospital on 06/22/2021. DISCHARGE MEDICATIONS: Please see below. ALLERGIES: Please see below. PHYSICAL EXAMINATION ON DISCHARGE: VITAL SIGNS: Please see below. General: Alert but not oriented female who was resting comfortably in the bedside chair when I walked into the room. Patient did not appear to be in any acute distress. HEENT: Normocephalic, patient had scabbed over abrasion on the patient's left forehead with some yellow ecchymosis overlying the left forehead down to the left eye, moist mucous membranes. Neck: No lymphadenopathy or thyromegaly Cardiac: Regular rate and rhythm, no murmurs, normal S1, normal S2 Pulm: Clear to auscultation bilaterally. No wheezes, rhonchi, rales Abd: Nondistended, nontender to palpation, normal bowel sounds Ext: No edema bilateral lower extremities Neuro: Patient was able to move all 4 extremities on command. LABORATORY DATA: Please see below. IMAGING: Cervical spine CT performed without contrast on 06/11/2021 was reported to show no definite CT evidence of acute traumatic cervical spine injury. Hairline lucency at the right C7 transverse process only seen on the coronal view and could not be corroborated on the other views likely artificial representing a nutrient vessel. Subtle fracture although unlikely cannot be completely excluded. Correlate with symptoms. If indicated MRI may be considered for further evaluation. 6.6 x 3.9 cm cystic mass in the left neck most likely arising from left thyroid lobe. Correlation with thyroid/neck ultrasound is suggested. CT of the head performed without contrast on 06/11/2021 was reported to show left frontal, supraorbital and periorbital soft tissue swelling with suggestion of small subtle hairline frontal skull fracture but no underlying intracranial hemorrhage, mass-effect, or midline shift. Age-related cerebral atrophy with p resumably chronic microangiopathic changes. CT of the maxillofacial without contrast from is reported to show left supraorbital and periorbital soft tissue swelling with no underlying facial bone fracture. PROGNOSIS: Fair ACTIVITY: As tolerated. DIET: Regular DISCHARGE PLAN: Discharge to locked dementia unit DISPOSITION: . DISCHARGE INSTRUCTIONS: 1. Follow-up with the provider at the [facility]. 2. Continue to wear cervical collar until instructed to take off by orthopedic surgery 3. Follow-up with orthopedic surgery 4. Return to the emergency department if symptoms worsen ITEMS TO FOLLOWUP ON ON OUTPATIENT: 1. Thyroid ultrasound to follow-up mass found on CT scan. DISCHARGE CONDITION: Stable. TIME SPENT ON DISCHARGE: 35 minutes. Vital Signs/I&Os Vital Signs Date Time Temp Pulse Resp B/P (MAP) Pulse Ox O2 Delivery O2 Flow Rate FiO2 06/21/21 06:00 97.0 77 15 134/79 (97) 97 Room Air l I&O- Last 24 Hours up to 6 AM 06/22/21 06:00 Intake Total 900 ml Balance 900 ml Laboratory Data Labs 24H Laboratory Tests 2 06/22/21 06:40: Nucleated Red Blood Cells % (auto) 0.0 CBC/BMP Laboratory Tests 06/22/21 06:40 Discharge Medications Scheduled Acetaminophen (Acetaminophen 8 Hour) 650 Mg Tablet.er, 650 MG PO Q8H, (Reported) Acetaminophen/Diphenhydramine (Percogesic Extra Str Caplet) 1 Each Tablet, 2 TAB PO QHS, (Reported) Aspirin (Aspirin EC) 81 Mg Tablet.dr, 81 MG PO DAILY, (Reported) Buspirone HCl (Buspirone HCl) 10 Mg Tab, 10 MG PO BID, (Reported) Calcium Carbonate/Vitamin D3 (Calcium 600-Vit D3 800 Tablet) 1 Each Tablet, 1 TAB PO DAILY, (Reported) Cholecalciferol (Vitamin D3) (Vitamin D3) 1,000 Unit Tablet, 2,000 UNITS PO DAILY, (Reported) Enoxaparin Sodium (Lovenox) 40 Mg/0.4 Ml Syringe, 40 MG SC DAILY, (Reported) STARTED AT [facility] Icosapent Ethyl (Vascepa) 1 Gm Cap, 1 GM PO BID, (Reported) Melatonin (Melatonin) 3 Mg Tablet, 12 MG PO QHS, (Reported) Pantoprazole Sodium (Protonix) 40 Mg Tablet.dr, 40 MG PO DAILY, (Reported) Quetiapine Fumarate (Quetiapine Fumarate) 25 Mg Tablet, 25 MG PO QAM, (Reported) Quetiapine Fumarate (Quetiapine Fumarate) 25 Mg Tablet, 50 MG PO QHS, (Reported) DOSE INCREASED AT [facility], WAS TAKING 25MG BID AT HOME Simvastatin (Simvastatin) 10 Mg Tablet, 10 MG PO QHS, (Reported) Trazodone HCl (Trazodone HCl) 50 Mg Tablet, 50 MG PO QHS, (Reported) Scheduled PRN Fluticasone Propionate (Flovent Hfa) 110 Mcg/Act Aer, 2 MCG INH BID PRN for SHORTNESS OF BREATH, (Reported) Olanzapine (Zyprexa) 2.5 Mg Tablet, 2.5 MG PO Q6H PRN for ANXIETY/AGITATION, (Reported) STARTED AT [facility] Allergies Coded Allergies: No Known Allergies (Unverified , 12/27/18) JURGEN ONEAL DO Jun 22, 2021 07:24
[2021-06-22 07:28] LABS: CALCIUM LEVEL 8.6 MG/DL (8.8-10.2); CREATININE FOR GFR 0.96 MG/DL (0.55-1.30); GLOMERULAR FILTRATION RATE 58.8 (>32); MAGNESIUM LEVEL 2.5 MG/DL (1.8-2.4); POTASSIUM SERUM 4.5 MEQ/L (3.5-5.1)
[2021-06-22] MEDS: FLUTICASONE HFA 110 MCG 12 GM INHALER (FLOVENT) INH SCH (07:43)
== END 2021-06-22 08:10 | DRG 552 ==
LOC: M MS5PR 06-16 13:10
PROVIDERS: ADMIT Neuromusculoskeletal Medicine & OMM; ATTEND Family Medicine
DX: S12.600A Unspecified displaced fracture of seventh cervical vertebra, initial encounter for closed fracture (principal); I10 Essential (primary) hypertension; R73.01 Impaired fasting glucose; E78.00 Pure hypercholesterolemia, unspecified; M81.0 Age-related osteoporosis without current pathological fracture; G25.0 Essential tremor; F41.9 Anxiety disorder, unspecified; J45.909 Unspecified asthma, uncomplicated; Z98.41 Cataract extraction status, right eye; Z98.42 Cataract extraction status, left eye; R29.6 Repeated falls; Z96.653 Presence of artificial knee joint, bilateral; W18.30XA Fall on same level, unspecified, initial encounter; Y92.9 Unspecified place or not applicable; Y93.9 Activity, unspecified; Y99.9 Unspecified external cause status; F03.90 Unspecified dementia, unspecified severity, without behavioral disturbance, psychotic disturbance, mood disturbance, and anxiety; R41.0 Disorientation, unspecified; Z79.899 Other long term (current) drug therapy